=== PATIENT | male | born 1990 | race Caucasian/White ===

== ENCOUNTER 2016-06-29 19:15 | Emergency (ER) | payer BC ==
[~2016-06-29] VITALS: Ht 170.2 cm; Wt 71.2 kg
[2016-06-29 19:50] VITALS: BP 151/76
== END 2016-06-30 00:38 | disposition home or self-care (01) ==
LOC: ER 19:22
DX: S01.511A Laceration without foreign body of lip, initial encounter (principal); S16.1XXA Strain of muscle, fascia and tendon at neck level, initial encounter; V49.40XA Driver injured in collision with unspecified motor vehicles in traffic accident, initial encounter; Y93.89 Activity, other specified; Y92.410 Unspecified street and highway as the place of occurrence of the external cause; Y99.9 Unspecified external cause status
CPT/HCPCS: 99283; A4606; Z7610